=== PATIENT | male | born 1990 | race Caucasian/White ===

== ENCOUNTER 2016-11-05 21:16 | Emergency (ER) | payer OTHER ==
[2016-11-05] MEDS ORDERED: MAGNESIUM CITRATE 296 ML BOTTLE PO ONE (21:36)
--- NOTE | 2016-11-05 21:40 | ED Physician Documentation ---
Abdominal Pain - HISTORIAN Historian: patient - HPI Stated Complaint: LLQ abdominal pain Chief Complaint: Abdominal Pain Onset: days ago Duration: worse Timing: worse Context: denies: out of country travel, bad food, recent trauma Severity: severe Quality: pain Associated Symptoms: denies: fever, chills, nausea, vomiting, diarrhea Exacerbated by: nothing Relieved by: nothing Further Comments: yes (26 year old male patient presents with LLQ pain, rates pain 10/10, reports last "large BM" 3 days ago, small hard BM yesterday.) - ROS CONST: no problems GI/: none CVS/RESP: none EYES/ENT: none MS/SKIN/LYMPH: none NEURO/PSYCH: none - SOCIAL HX Smoking History: cigarettes Drug Use: other (klonopin, xanax abuse) - FAMILY HX Family History: denies: none - PAST HX Past History: none Ischemic Bowel Risk Factors: none Other History: none Home Medications: Ambulatory Orders Medication Instructions Recorded NK [NK] 11/05/16 Allergies/Adverse Reactions: Allergies Allergy/AdvReac Type Severity Reaction Status Date / Time doxycycline Allergy Rash Verified 11/05/16 21:25 - VITAL SIGNS Vital Signs: Vital Signs Temp Pulse Resp BP Pulse Ox 98.9 F 95 H 16 150/95 98 11/05/16 21:26 11/05/16 21:26 11/05/16 21:26 11/05/16 21:26 11/05/16 21:26 - REVIEWED ASSESSMENTS Nursing Assessment Reviewed: Yes Vitals Reviewed: Yes Progress - Progress Progress: Magnesium citrate given in ER. ED Results Lab/Radiology - Radiology Radiology Impressions: Abdomen - two views Clinical history: Left lower quadrant abdominal pain beginning today. Findings: Examination of the abdomen in supine and upright views demonstrates gas and stool throughout the colon. There is gas in some nondistended small bowel loops. There is no obstruction or free air. The properitoneal fat lines are preserved. Visualized visceral silhouettes are within normal limits. Lung bases are clear. There are no unusual intra-abdominal calcifications. Impression: 1. Stool throughout the colon. 2. Increased small bowel gas without small bowel dilatation. Electronically signed on November 05, 2016 10:04:03 PM CDT by: Abel Choi - Orders Orders: ED Orders Category Date Time Status ABDOMEN COMPLETE [RAD] Stat Exams 11/05/16 Ordered Magnesium Citrate [Citrate of Magnesia] Med 11/05/16 21:36 Discontinued 296 ml PO .STK-MED ONE Magnesium Citrate [Citrate of Magnesia] Med 11/05/16 21:36 Once 296 ml PO NOW ONE Abdominal Pain Physical Exam - Physical Exam General Appearance: mild distress EENT: eye inspection normal, SUNNY RESPIRATORY: no resp distress, chest non-tender, breath sounds normal CVS: reg rate & rhythm, heart sounds normal, equal pulses, no murmur, no gallop , PMI nml, no JVD, no friction rub, 24 ABDOMEN: soft, no organomegaly, normal bowel sounds, no abdominal bruit, no distension SKIN: normal color, warm/dry, NR, INT, PAL, DR EXTREMITIES: non-tender, normal range of motion, no evidence of injury, no edema , J, [employer]INEER NEURO: oriented X3, CN's nml as tested, motor nml, sensation nml Vital Signs: Vital Signs Temp Pulse Resp BP Pulse Ox 98.9 F 95 H 16 150/95 98 11/05/16 21:26 11/05/16 21:26 11/05/16 21:26 11/05/16 21:26 11/05/16 21:26 Discharge Clincal Impression: Constipation Qualifiers: Constipation type: unspecified constipation type Qualified Code(s): K59.00 - Constipation, unspecified Referrals: Yannick Cartagena MD [Primary Care Provider] - 2 Days Additional Instructions: MOM qd po prn constipation Home Medications: Ambulatory Orders NK [NK] 11/05/16 Condition: Stable Disposition: 01 HOME, SELF-CARE Decision to Admit: NO Decision Time: 22:08
[2016-11-05] MEDS: MAGNESIUM CITRATE 296 ML BOTTLE PO ONE (21:46)
[2016-11-05 22:15] VITALS: BP 132/81
--- NOTE | 2016-11-06 06:42 | Diagnostic Imaging Report ---
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 [address] Report Submission Date: November 05, 2016 10:04:03 PM CDT Patient Study Name: MANINDER CALDERON Date: November 05, 2016 9:26:19 PM CDT Modality Type: CR Gender: M Description: ABDOMEN : 89 Institution: [facility] Physician: COLIN SPARKS ([place]) - ER Abdomen - two views Clinical history: Left lower quadrant abdominal pain beginning today. Findings: Examination of the abdomen in supine and upright views demonstrates gas and stool throughout the colon. There is gas in some nondistended small bowel loops. There is no obstruction or free air. The properitoneal fat lines are preserved. Visualized visceral silhouettes are within normal limits. Lung bases are clear. There are no unusual intra-abdominal calcifications. Impression: 1. Stool throughout the colon. 2. Increased small bowel gas without small bowel dilatation. Electronically signed on November 05, 2016 10:04:03 PM CDT by: Abel CRUZ
== END 2016-11-05 22:13 | disposition home or self-care (01) ==
LOC: ED 21:16
DX: K59.00 Constipation, unspecified (principal)
CPT/HCPCS: 74020; 99283